=== PATIENT | male | born 1945 | race African-American/Black ===

== ENCOUNTER 2024-12-15 16:21 | Inpatient (IN) | payer OTHER, MEDICARE ==
[~2024-12-15] VITALS: Ht 190.5 cm; Wt 91.2 kg
[~2024-12-15 16:21] MED LIST: APIX5TAB MT; ATOR10TA69 MT; BENZ100C86 MT; CALC0.253 MT; CARV6.2548 MT; DOCU-422 MT; EPOE200014 SQ; FEBU40TA MT; FINA5TAB11 MT; FURO20TA4 MT; GABA-529 MT; HYDR-4009 MT; HYDR100T11 MT; ISOS60TA76 MT; NIFE-49 MT; OXYC-662 MT; TERA10CA4 MT
[2024-12-15 17:00] LABS: BASOPHILS % 0.6 % (0.0-2.0); EOSINOPHILS % 2.3 % (0.0-5.0); HEMATOCRIT. 38.7 % (42.0-52.0); HEMOGLOBIN. 12.2 g/dL (14.0-18.0); LYMPHOCYTES % 13.1 % (20.0-50.0); MEAN CORPUSCULAR HGB CONC 31.5 g/dL (31.0-37.0); MEAN CORPUSCULAR VOLUME 98.3 fL (80.0-94.0); MEAN PLATELET VOLUME 8.5 fl (7.4-10.4); MONOCYTES % 7.7 % (2.0-8.0); NEUTROPHILS % 76.3 % (40.0-76.0); PLATELET 125 x1000/uL (130-400); RED BLOOD CELL COUNT 3.94 mill/uL (4.7-6.1); RED CELL DISTRIBUTION WIDTH 17.9 % (11.6-14.6); WHITE BLOOD COUNT 5.1 x1000/uL (4.5-11.0)
[2024-12-15 17:07] LABS: CHLORIDE 109 mEq/L (98-107); POTASSIUM 3.8 mEq/L (3.5-5.1); SODIUM 139 mEq/L (136-145)
[2024-12-15 17:08] LABS: CALCIUM 8.1 mg/dL (8.7-10.4); CARBON DIOXIDE 24 mEq/L (21-32)
[2024-12-15 17:13] LABS: CREATININE 3.4 mg/dL (0.6-1.3); GLUCOSE 96 mg/dL (70-105); UREA NITROGEN BLOOD 50 mg/dL (9-23)
[2024-12-15] MEDS: MORPHINE SULFATE 4 MG/ML INJ (FOR IV/IM USE) IV STA (17:16)
[2024-12-15 17:17] LABS: TROPONIN I HIGH SENSITIVITY 56 ng/L (3.0-53)
[2024-12-15 18:21] LABS: PROTHROMBIN TIME 10.6 sec (9.6-11.0)
[2024-12-15] MEDS: LIDOCAINE 5% PATCH TOP ONE (18:22)
[2024-12-15] MEDS: MORPHINE SULFATE 4 MG/ML INJ (FOR IV/IM USE) IV ONE (20:57)
[2024-12-15 21:27] LABS: TROPONIN I HIGH SENSITIVITY 64 ng/L (3.0-53)
[2024-12-15 21:30] VITALS: BP 104/63; PULSE 64; RESP 18; TEMP 36.7; TEMP 36.8; O2SAT 98
[2024-12-15] MEDS ORDERED: IOHEXOL-350 100 ML BOTTLE ONE (23:37)
[2024-12-16] VITALS (7 sets, daily range): BP systolic 126–170; BP diastolic 52–80; PULSE 60–71; RESP 18–20; TEMP 36.4–37; O2SAT 96–99
[2024-12-16] MEDS: MORPHINE SULFATE 4 MG/ML INJ (FOR IV/IM USE) IV PRN (00:26)
[2024-12-16] MEDS: HYDRALAZINE HCL 100MG TABLET PO SCH (05:36)
[2024-12-16 06:00] LABS: BASOPHILS % 0.5 % (0.0-2.0); EOSINOPHILS % 3.8 % (0.0-5.0); HEMATOCRIT. 35.8 % (42.0-52.0); HEMOGLOBIN. 11.5 g/dL (14.0-18.0); LYMPHOCYTES % 18.5 % (20.0-50.0); MEAN CORPUSCULAR HEMOGLOBIN 31.1 pg (28.0-32.0); MEAN CORPUSCULAR HGB CONC 32.1 g/dL (31.0-37.0); MEAN CORPUSCULAR VOLUME 96.8 fL (80.0-94.0); MEAN PLATELET VOLUME 8.7 fl (7.4-10.4); MONOCYTES % 9.1 % (2.0-8.0); NEUTROPHILS % 68.1 % (40.0-76.0); PLATELET 119 x1000/uL (130-400); RED CELL DISTRIBUTION WIDTH 17.4 % (11.6-14.6); WHITE BLOOD COUNT 4.5 x1000/uL (4.5-11.0)
[2024-12-16] MEDS ORDERED: GABAPENTIN 100MG CAPSULE PO SCH (06:00)
[2024-12-16 06:21] LABS: PHOSPHORUS 3.3 mg/dL (2.5-4.9)
[2024-12-16] MEDS ORDERED: ACETAMINOPHEN 325MG TABLET PO PRN ×2 (10:15→10:30)
[2024-12-16] MEDS ORDERED: ONDANSETRON HCL 4MG/2ML INJ IV PRN (10:15)
[2024-12-16] MEDS ORDERED: NALOXONE HCL 0.4MG/ML VIAL IV PRN (10:30)
[2024-12-16] MEDS: CALCITRIOL 0.25MCG CAPSULE PO SCH (11:16)
[2024-12-16] MEDS: APIXABAN 5 MG TABLET PO SCH (11:16)
[2024-12-16] MEDS: NIFEDIPINE XL 60MG TAB PO SCH (11:17)
[2024-12-16] MEDS: FUROSEMIDE 40MG TABLET PO SCH (11:17)
[2024-12-16] MEDS: DOCUSATE SODIUM 100MG CAPSULE PO SCH (11:17)
[2024-12-16] MEDS: CARVEDILOL 6.25 MG TABLET PO SCH (11:17)
[2024-12-16] MEDS: FINASTERIDE 5MG TABLET PO SCH (11:18)
[2024-12-16] MEDS: ISOSORBIDE MONONITRATE 60MG TABLET SR 24HR PO SCH (11:18)
[2024-12-16 16:21] LABS: CREATINE KINASE MB FRACTION 2.7 ng/mL (0.5-3.6)
[2024-12-16 16:25] LABS: T4 FREE 1.06 ng/dL (0.89-1.76)
[2024-12-16 16:38] LABS: HEPATITIS B SURFACE ANTIGEN NEGATIVE (Negative)
[2024-12-16 16:58] LABS: HEPATITIS A AB IGM NEGATIVE (Negative)
[2024-12-16 16:59] LABS: HEPATITIS B CORE AB IGM NEGATIVE (Negative); HEPATITIS C AB NON REACTIVE (Neg) (Negative)
[2024-12-16] MEDS ORDERED: ATORVASTATIN CALCIUM 20MG TABLET PO SCH (21:00)
[2024-12-16] MEDS: ATORVASTATIN CALCIUM 40MG TABLET PO SCH (21:53)
[2024-12-16] MEDS: TERAZOSIN HCL 5MG CAPSULE PO SCH (21:56)
[2024-12-17] VITALS (11 sets, daily range): BP systolic 95–155; BP diastolic 50–84; PULSE 58–95; RESP 18–20; TEMP 36.2–37; O2SAT 95–100
[2024-12-17 00:31] LABS: CREATINE KINASE MB FRACTION 2.9 ng/mL (0.5-3.6)
[2024-12-17 06:46] LABS: BASOPHILS % 0.6 % (0.0-2.0); EOSINOPHILS % 3.3 % (0.0-5.0); HEMATOCRIT. 35.3 % (42.0-52.0); HEMOGLOBIN. 11.2 g/dL (14.0-18.0); LYMPHOCYTES % 21.8 % (20.0-50.0); MEAN CORPUSCULAR HEMOGLOBIN 30.8 pg (28.0-32.0); MEAN CORPUSCULAR HGB CONC 31.8 g/dL (31.0-37.0); MEAN CORPUSCULAR VOLUME 96.7 fL (80.0-94.0); MEAN PLATELET VOLUME 8.2 fl (7.4-10.4); MONOCYTES % 8.4 % (2.0-8.0); NEUTROPHILS % 65.9 % (40.0-76.0); PLATELET 121 x1000/uL (130-400); RED BLOOD CELL COUNT 3.65 mill/uL (4.7-6.1); RED CELL DISTRIBUTION WIDTH 17.8 % (11.6-14.6); WHITE BLOOD COUNT 3.4 x1000/uL (4.5-11.0)
[2024-12-17 07:05] LABS: POTASSIUM 4.7 mEq/L (3.5-5.1)
[2024-12-17 07:07] LABS: CALCIUM 8.3 mg/dL (8.7-10.4)
[2024-12-17 07:11] LABS: CREATININE 4.4 mg/dL (0.6-1.3)
[2024-12-17] MEDS: ASPIRIN 81MG TABLET PO SCH (09:56)
[2024-12-17] MEDS: FOLIC ACID/VITAMIN B COMP W-C TABLET PO SCH (09:56)
[2024-12-17] MEDS: FAMOTIDINE 20MG/2ML VIAL IV SCH (09:58)
[2024-12-17] MEDS: HYDROCODONE/ACETAMINOPHEN 10/325MG TABLET PO PRN (22:00)
[2024-12-17] MEDS ORDERED: MORPHINE SULFATE 2 MG/ML INJ (NOT FOR IM USE) IV NR (23:10)
[2024-12-17] MEDS ORDERED: APIX5TAB PO (23:24)
[2024-12-17] MEDS ORDERED: ATOR40TA70 PO (23:26)
[2024-12-17] MEDS ORDERED: ISOS120T13 PO (23:26)
[2024-12-17] MEDS ORDERED: HYDR50TA39 PO (23:26)
[2024-12-17] MEDS ORDERED: TAMS-54 PO (23:27)
[2024-12-17] MEDS ORDERED: CLOP75TA33 PO (23:27)
[2024-12-17] MEDS: MORPHINE SULFATE 4 MG/ML INJ (FOR IV/IM USE) IV NR (23:30)
[2024-12-18] VITALS (7 sets, daily range): BP systolic 128–149; BP diastolic 50–80; PULSE 62–98; RESP 19–20; TEMP 36.3–37.2; O2SAT 93–100
[2024-12-18] MEDS: FUROSEMIDE 40MG TABLET PO SCH (06:23)
[2024-12-18] MEDS: APIXABAN 2.5 MG TABLET PO SCH (09:36)
[2024-12-18] MEDS: NITROGLYCERIN 0.4MG TABLET SL SL PRN (09:54)
[2024-12-18] MEDS: MORPHINE SULFATE 4 MG/ML INJ (FOR IV/IM USE) IV PRN (10:32)
== END 2024-12-18 20:30 | disposition short-term general hospital (02) | DRG 280 ==
LOC: ER 16:21 → 7WST 20:48 → EDBEDREQTM 20:49 → ENRESERV 21:03
PROVIDERS: ADMIT Internal Medicine; ATTEND Internal Medicine
PROC: 5A1D70Z Performance of Urinary Filtration, Intermittent, Less than 6 Hours Per Day (ICD-10-PCS; principal; 2024-12-17)
DX: I21.4 Non-ST elevation (NSTEMI) myocardial infarction (principal); N18.6 End stage renal disease; I50.22 Chronic systolic (congestive) heart failure; I13.2 Hypertensive heart and chronic kidney disease with heart failure and with stage 5 chronic kidney disease, or end stage renal disease; I48.20 Chronic atrial fibrillation, unspecified; N39.0 Urinary tract infection, site not specified; G90.89 Other disorders of autonomic nervous system; I25.10 Atherosclerotic heart disease of native coronary artery without angina pectoris; I71.21 Aneurysm of the ascending aorta, without rupture; D64.9 Anemia, unspecified; D69.6 Thrombocytopenia, unspecified; E78.5 Hyperlipidemia, unspecified; E83.42 Hypomagnesemia; F41.9 Anxiety disorder, unspecified; G47.33 Obstructive sleep apnea (adult) (pediatric); J44.9 Chronic obstructive pulmonary disease, unspecified; Z99.2 Dependence on renal dialysis; Z99.3 Dependence on wheelchair; Z88.8 Allergy status to other drugs, medicaments and biological substances; Z79.01 Long term (current) use of anticoagulants; Z87.11 Personal history of peptic ulcer disease; Z88.6 Allergy status to analgesic agent; Z87.891 Personal history of nicotine dependence; Z87.01 Personal history of pneumonia (recurrent); Z95.5 Presence of coronary angioplasty implant and graft
CPT/HCPCS: 36415; 71045; 71275; 80048; 80061; 82550; 82553; 83036; 83735; 83880; 84100; 84439; 84443; 84484; 85025; 86705; 86709; 86850; 86900; 87340; 90935; 93005; 93306; 96374; 96375; 99291; J2270; J3490; Q9967

== ENCOUNTER 2025-02-03 20:07 | Emergency (ER) | payer MEDICARE, OTHER ==
[~2025-02-03] VITALS: Ht 190.5 cm; Wt 79.0 kg
[~2025-02-03 20:07] MED LIST changes: -APIX5TAB MT; +APIX5TAB PO; -ATOR10TA69 MT; +ATOR40TA70 PO; -BENZ100C86 MT; +CLOP75TA33 PO; -GABA-529 MT; -HYDR100T11 MT; +HYDR50TA39 PO; +ISOS120T13 PO; -ISOS60TA76 MT; -OXYC-662 MT; +TAMS-54 PO
[2025-02-03 20:13] VITALS: O2SAT 96
[2025-02-03 21:55] LABS: BASOPHILS % 0.3 % (0.0-2.0); EOSINOPHILS % 0.7 % (0.0-5.0); HEMATOCRIT. 30.6 % (42.0-52.0); HEMOGLOBIN. 9.8 g/dL (14.0-18.0); LYMPHOCYTES % 9.2 % (20.0-50.0); MEAN PLATELET VOLUME 7.7 fl (7.4-10.4); MONOCYTES % 6.7 % (2.0-8.0); NEUTROPHILS % 83.1 % (40.0-76.0); PLATELET 176 x1000/uL (130-400); RED BLOOD CELL COUNT 3.13 mill/uL (4.7-6.1); RED CELL DISTRIBUTION WIDTH 19.5 % (11.6-14.6)
[2025-02-03 22:02] LABS: INR 1.2
[2025-02-03 22:17] LABS: CREATININE 3.2 mg/dL (0.6-1.3)
[2025-02-03 22:18] LABS: TROPONIN I HIGH SENSITIVITY 42 ng/L (3.0-53); UREA NITROGEN BLOOD 35 mg/dL (9-23)
[2025-02-03 22:19] LABS: ASPARTATE AMINOTRANSFERASE 13 IU/L (<34)
[2025-02-03 22:20] LABS: BILIRUBIN DIRECT < 0.1 mg/dL (<=3.0); BILIRUBIN TOTAL < 0.2 mg/dL (0.1-1.0); PROTEIN TOTAL 4.5 g/dL (6.0-8.3)
[2025-02-04] MEDS: ONDANSETRON HCL 4MG/2ML INJ IV ONE (00:10)
[2025-02-04] MEDS: MORPHINE SULFATE 4 MG/ML INJ (FOR IV/IM USE) IV ONE (00:10)
[2025-02-04 00:59] LABS: CLARITY URINE TURBID (CLEAR); COLOR URINE DARK YELLOW (YELLOW); GLUCOSE URINE NEGATIVE (NEGATIVE); KETONES URINE TRACE (NEGATIVE); LEUKOCYTE ESTERASE URINE 3+ (NEGATIVE); NITRITE URINE NEGATIVE (NEGATIVE); OCCULT BLOOD URINE TRACE (NEGATIVE); PH URINE 5.0 (4.5-8.0); PROTEIN URINE 3+ (NEGATIVE); SPECIFIC GRAVITY URINE 1.020 (1.005-1.030); UROBILINOGEN URINE 0.2 E.U./dL (0.2-1.0)
[2025-02-04 01:25] LABS: WBC URINE TNTC /hpf (0-2)
[2025-02-04 01:26] LABS: BACTERIA URINE 1+; RBC URINE 0-2 /hpf (0-2); SQUAMOUS EPITHELIAL CELL URINE RARE /lpf (RARE/1+); YEAST URINE 2+
[2025-02-04 01:27] LABS: MUCUS URINE 1+ /lpf (NONE/TRACE); RENAL EPITHELIAL CELLS URINE FEW /lpf
[2025-02-04] MEDS ORDERED: IPRATROPIUM/ALBUTEROL 0.5-3(2.5)MG/3ML NEB HHN PRN (03:30)
[2025-02-04] MEDS ORDERED: CLONIDINE 0.1MG TABLET PO PRN (03:30)
[2025-02-04] MEDS ORDERED: ONDANSETRON HCL 4MG/2ML INJ IV PRN (03:30)
[2025-02-04] MEDS ORDERED: ACETAMINOPHEN 325MG TABLET PO PRN (03:30)
[2025-02-04] MEDS ORDERED: GUAIFENESIN 200MG/10ML SUGAR FREE UDC PO PRN (03:30)
[2025-02-04] MEDS ORDERED: DOCUSATE SODIUM 100MG CAPSULE PO PRN (03:30)
[2025-02-04] MEDS ORDERED: DEXT 5%/0.9% NACL 1,000 ML IV SCH (04:00)
[2025-02-04 04:08] VITALS: BP 114/53; PULSE 64; RESP 21; TEMP 36.5; O2SAT 99
[2025-02-04] MEDS ORDERED: CALCIUM GLUCONATE 100MG/ML 10ML VIAL IV NR (04:15)
[2025-02-04] MEDS ORDERED: PIPERACILLIN/TAZO 3.375G/50ML 50 ML IV SCH (06:00)
[2025-02-04] MEDS ORDERED: CALCITRIOL 0.25MCG CAPSULE PO SCH (09:00)
[2025-02-04] MEDS ORDERED: FUROSEMIDE 40MG/4ML VIAL IVP SCH (09:00)
[2025-02-04] MEDS ORDERED: APIXABAN 2.5 MG TABLET PO SCH (09:00)
[2025-02-04] MEDS ORDERED: TAMSULOSIN HCL 0.4MG SR CAPSULE PO SCH (09:00)
[2025-02-04] MEDS ORDERED: CARVEDILOL 6.25 MG TABLET PO SCH (09:00)
[2025-02-04] MEDS ORDERED: CLOPIDOGREL 75MG TABLET PO SCH (09:00)
[2025-02-04] MEDS ORDERED: FINASTERIDE 5MG TABLET PO SCH (09:00)
[2025-02-04] MEDS ORDERED: PANTOPRAZOLE SODIUM 40 MG/VIAL IV SCH (09:00)
[2025-02-04 12:26] LABS: *AMPHETAMINES SCREEN URINE NEGATIVE (NEGATIVE)
[2025-02-04 12:27] LABS: *BENZODIAZEPINES SCREEN URINE NEGATIVE (NEGATIVE)
[2025-02-04 12:28] LABS: *BARBITURATES SCREEN URINE NEGATIVE (NEGATIVE); *COCAINE SCREEN URINE NEGATIVE (NEGATIVE); METHADONE URINE SCREEN NEGATIVE (NEGATIVE)
[2025-02-04 12:29] LABS: CANNABINOID URINE SCREEN NEGATIVE (NEGATIVE); ECSTASY MDMA SCREEN URINE NEGATIVE (NEGATIVE); OPIATES URINE SCREEN PRESUMPTIVE POSITIVE (NEGATIVE); PHENCYCLIDINE URINE SCREEN NEGATIVE (NEGATIVE)
[2025-02-04] MEDS ORDERED: ATORVASTATIN CALCIUM 40MG TABLET PO SCH (21:00)
[2025-02-05] MEDS ORDERED: NIFE-33 PO (00:02)
[2025-02-05] MEDS ORDERED: CARV12.545 PO (00:02)
[2025-02-05] MEDS ORDERED: ALLO100T PO (00:02)
[2025-02-05] MEDS ORDERED: MAG-4 PO (00:02)
[2025-02-05] MEDS ORDERED: LORA-249 PO (00:02)
[2025-02-05] MEDS ORDERED: SEVE400T (00:02)
[2025-02-05] MEDS ORDERED: ISOS60TA76 PO (00:02)
[2025-02-05] MEDS ORDERED: OXYC1TAB5 PO (00:02)
[2025-02-05] MEDS ORDERED: MOM PO (00:02)
[2025-02-05] MEDS ORDERED: TAMS-54 PO (00:02)
[2025-02-05] MEDS ORDERED: DOCU-347 PO (00:02)
[2025-02-05] MEDS ORDERED: PSYL283P35 PO (00:02)
[2025-02-08] MEDS ORDERED: HYDR-4009 MT (13:15)
== END 2025-02-04 04:07 | disposition short-term general hospital (02) ==
LOC: ER 20:07 → EDBEDREQ 02-04 02:36 → EDBEDREQTM 02-04 02:36 → EDBEDREQDT 02-04 02:36 → ER 02-04 04:07 → ENRESERV 02-04 22:30
DX: R10.84 Generalized abdominal pain (principal); I13.2 Hypertensive heart and chronic kidney disease with heart failure and with stage 5 chronic kidney disease, or end stage renal disease; I48.91 Unspecified atrial fibrillation; I50.9 Heart failure, unspecified; J44.9 Chronic obstructive pulmonary disease, unspecified; N18.6 End stage renal disease; Z79.01 Long term (current) use of anticoagulants; Z79.02 Long term (current) use of antithrombotics/antiplatelets; Z79.899 Other long term (current) drug therapy; Z88.6 Allergy status to analgesic agent; Z88.8 Allergy status to other drugs, medicaments and biological substances; Z99.2 Dependence on renal dialysis; Z99.3 Dependence on wheelchair
CPT/HCPCS: 80076; 80048; 83690; 85025; 85610; 84484; 36415; 71045; 74176; 93005; 99285; 80305; 81003; 87086; 87186; 87077; 96374; 96375; J2405; J2270; J0610